=== PATIENT | female | born 1975 | race Asian ===

== ENCOUNTER 2017-06-12 23:36 | Emergency (ER) | payer OTHER ==
[~2017-06-12] VITALS: Ht 162.6 cm; Wt 59.0 kg
[2017-06-13] MEDS ORDERED: Tetanus/Diptheria/Pertussis Vaccine 0.5ml Syr IM ONE (00:15)
[2017-06-13 01:20] VITALS: BP 120/72
[2017-06-13 01:25] VITALS: BP 120/72
--- NOTE | 2017-06-13 04:50 | Emergency Room Report ---
History of Present Illness General Chief Complaint: Laceration Source: Patient Present Illness HPI 41-year-old female presents ED status post laceration. 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 Tetanus unknown. Pain is burning, 5 out of 10, nonradiating. Denies any other injuries. No other aggravating or relieving factors. Denies any other associated symptoms Allergies: Coded Allergies: No Known Allergies (Unverified , 06/12/17) Patient History Past Medical History: none Past Surgical History: none Pertinent Family History: none Social History: Denies: smoking, alcohol use, drug use Last Menstrual Period: a week ago Now: No Immunizations: UTD Reviewed Nursing Documentation: PMH: Agreed, PSxH: Agreed Review of Systems All Other Systems: negative except mentioned in HPI Physical Exam Vital Signs Date Time Temp Pulse Resp B/P (MAP) Pulse Ox O2 Delivery O2 Flow Rate FiO2 06/12/17 23:50 98.3 77 18 126/78 98 Room Air 98.2 Sp02 EP Interpretation: reviewed, normal General Appearance: no apparent distress, alert, GCS 15, non-toxic Head: normocephalic Eyes: bilateral eye normal inspection, bilateral eye PERRL ENT: normal ENT inspection Neck: normal inspection Respiratory: normal inspection Cardiovascular #1: normal inspection Gastrointestinal: normal inspection Rectal: deferred Genitourinary: no CVA tenderness Musculoskeletal: back normal, gait/station normal, normal range of motion, non- tender Neurologic: alert, oriented x3, responsive, motor strength/tone normal, sensory intact, speech normal Psychiatric: normal inspection Skin: laceration - 0.5cm laceration to base of L thumb. superficial. 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 After initial history and physical I ordered tetanus shot. Anesthesia provided with lidocaine. Laceration repaired w/o complication. Dressing applied. Diagnosis - laceration Stable and discharged to home. wound Care instructions given. Followup with PMD in 10-12 days for suture removal. Return to ED if any signs of infection develop Last Vital Signs Date Time Temp Pulse Resp B/P (MAP) Pulse Ox O2 Delivery O2 Flow Rate FiO2 06/13/17 01:25 98.1 77 17 120/72 99 Room Air 98.1 Status: improved Disposition: HOME, SELF-CARE Condition: Stable Referrals: Osman Romero MD (PCP) Departure Forms: Return to Work Return to Work Date: Jun 15, 2017 Work Restrictions: No Heavy Lifting Patient Instructions: Laceration Care, Adult Additional Instructions: return to ED in 10 days for suture removal. return to ED if any signs of infection develop ISSA PITT M.D. Jun 13, 2017 04:50
== END 2017-06-13 01:25 | disposition home or self-care (01) ==
LOC: EMR 06-13 00:17
DX: S61.412A Laceration without foreign body of left hand, initial encounter (principal); W27.5XXA Contact with paper-cutter, initial encounter; Y92.512 Supermarket, store or market as the place of occurrence of the external cause; Y99.0 Civilian activity done for income or pay; Z23 Encounter for immunization
CPT/HCPCS: 90471; 90715; 99284